=== PATIENT | female | born 1980 | race Caucasian/White ===

== ENCOUNTER 2025-02-25 07:23 | Day surgery (SDC) | payer OTHER ==
[2025-02-25] MEDS ORDERED: CEFAZOLIN SODIUM ONE (07:32)
[2025-02-25 07:39] LABS: HCG URINE TEST NEGATIVE (NEGATIVE)
[2025-02-25 07:41] VITALS: RESP 18; O2SAT 99
[2025-02-25] MEDS: Lactated Ringers 1,000 ML IV SCH (07:43)
[2025-02-25] MEDS ORDERED: ROCURONIUM BROMIDE IV ONE (09:45)
[2025-02-25] MEDS ORDERED: propofoL IV ONE (09:45)
[2025-02-25] MEDS ORDERED: SUBLIMAZE 100 MCG/2 ML ONE (09:45)
[2025-02-25] MEDS ORDERED: Versed 2 MG/2 ML Injection ONE (09:45)
[2025-02-25] MEDS ORDERED: Sensorcaine 0.25% 10 ML ONE (09:49)
[2025-02-25] MEDS ORDERED: Xylocaine-Mpf 2% 5 Ml Vial ONE (09:56)
[2025-02-25] MEDS ORDERED: BRIDION 200MG/2ML IV ONE (10:23)
[2025-02-25] MEDS ORDERED: Zofran 4 MG/2 ML VIAL ONE (10:23)
[2025-02-25] MEDS ORDERED: TORAdol 30 mg Injection ONE (10:27)
[2025-02-25 11:47] VITALS: BP 118/81; PULSE 68; TEMP 97.6
--- NOTE | 2025-02-27 10:26 | OP ---
SURGERY DATE/TIME: 02/25/2025 [id number] PREOPERATIVE DIAGNOSIS: Contraceptive management. POSTOPERATIVE DIAGNOSIS: Contraceptive management. PROCEDURE: Laparoscopic tubal sterilization via bilateral salpingectomy. SURGEON: Thad Astorga DO [employer]AD [employer] MOLDER: Julissa De La Vega ANESTHESIA: General. ESTIMATED BLOOD LOSS: Minimal. COMPLICATIONS: None. INDICATIONS: The risks, benefits, indications, and alternatives of the procedure were reviewed with the patient prior to the procedure. The patient understood the risk of infection, bleeding, bowel injury or bladder injury, ureteral injury, possible future , and ectopic that may be associated with this procedure and desires to have this procedure as a possible means to alleviate her current medical condition. DESCRIPTION OF PROCEDURE AND FINDINGS: From this point, the patient was taken to the operating room, given general sedation, placed in a supine position where she was prepped and draped in the usual sterile fashion. A 5 mm skin incision was made in the umbilical fold, and a 5 mm trocar and sleeve were advanced under direct visualization where pneumoperitoneum was obtained with 4 L of CO2 gas. An additional incision was made in the left middle quadrant region where a 5 mm trocar and sleeve were advanced under direct visualization, and an additional incision was made 2 cm above the symphysis pubis where an 8 mm incision was made and an 8 mm trocar and sleeve were advanced under direct visualization. From this point, a survey of the patient's pelvis and abdomen revealed an entirely normal anatomy. From this point, the right fallopian tube was elevated using the grasper through the trochar site and the LigaSure was used and placed on the right mesosalpinx region where it was clamped, coagulated, and cut, taken through the entire mesosalpinx toward the cornual region of the uterus, where it was excised in its entirety. Hemostasis was obtained. From this point, the same procedure was performed on the left side where the left fallopian tube was elevated and the LigaSure was placed on the left mesosalpinx where it was clamped, coagulated and cut, taken down toward the cornual region of the uterus, and was excised in a similar fashion. Hemostasis was obtained at this point. From this point, all instruments were removed from the patient's abdominal region and the incisions were closed with 4-0 Monocryl suture. From this point, the patient was then taken out of anesthesia and was then taken to the recovery room in stable condition. All instruments and laps were accounted for x2.
== END 2025-02-25 11:55 | disposition home or self-care (01) ==
LOC: SDC 07:23 → EDSTATUS 17:26
PROVIDERS: ATTEND Obstetrics & Gynecology
DX: Z30.2 Encounter for sterilization (principal)